=== PATIENT | female | born 1985 | race Caucasian/White ===

== ENCOUNTER 2020-03-16 13:55 | Inpatient (IN) | payer MEDICAID ==
[~2020-03-16] VITALS: Ht 162.6 cm; Wt 108.4 kg
[2020-03-16 20:16] VITALS: BP 94/67
[2020-03-16 20:32] VITALS: BP 94/67
[2020-03-16 20:47] VITALS: BP 103/68
[2020-03-16] MEDS: LORazepam 2 MG TABLET PO PRN (20:50)
[2020-03-16] MEDS: ZOLPIDEM TARTRATE 10 MG TABLET PO PRN (23:28)
[2020-03-17 01:23] VITALS: BP 123/83
[2020-03-17 01:30] VITALS: BP 80/48
[2020-03-17 02:13] VITALS: BP 89/51
[2020-03-17] MEDS ORDERED: BENZOCAINE/MENTHOL LOZENGE MM PRN (07:30)
[2020-03-17] MEDS ORDERED: ALBUTEROL SULFATE HFA 90 MCG/PUFF 8 GM INHALER IH PRN (07:30)
[2020-03-17] MEDS ORDERED: OMEPRAZOLE 20 MG CAPSULE PO PRN (07:30)
[2020-03-17] MEDS ORDERED: ONDANSETRON HCL 4 MG TABLET PO PRN (07:30)
[2020-03-17] MEDS ORDERED: MAGNESIUM HYDROXIDE SUSPENSION 30 ML UDCUP PO PRN (07:30)
[2020-03-17] MEDS ORDERED: PETROLATUM,WHITE 28 GM JELLY TP PRN (07:30)
[2020-03-17] MEDS ORDERED: IBUPROFEN 600 MG TABLET PO PRN (07:30)
[2020-03-17] MEDS ORDERED: BACITRACIN 28.4 GM OINTMENT TP PRN (07:30)
[2020-03-17] MEDS ORDERED: ACETAMINOPHEN 325 MG TABLET PO PRN (07:30)
[2020-03-17] MEDS ORDERED: DOCUSATE SODIUM 100 MG CAPSULE PO PRN (07:30)
[2020-03-17] MEDS ORDERED: CloNIDine HCL 0.1 MG TABLET PO PRN (07:30)
[2020-03-17] MEDS ORDERED: LOPERAMIDE HCL 2 MG CAPSULE PO PRN (07:30)
[2020-03-17] MEDS ORDERED: MAG HYDROX/AL HYDROX/SIMETH ES 30 ML SUSPENSION UDCUP PO PRN (07:30)
[2020-03-17 08:24] VITALS: BP 104/73
[2020-03-17] MEDS: LORazepam 2 MG TABLET PO PRN ×2 (11:04→16:40)
[2020-03-17] MEDS: BuPROPion HCL XL 150 MG ER TABLET PO SCH (14:00)
[2020-03-17 16:04] VITALS: BP 102/70
[2020-03-17 16:39] VITALS: BP 111/71
[2020-03-17] MEDS: LURASIDONE HCL 20 MG TABLET PO SCH (16:40)
[2020-03-18 00:46] VITALS: BP 110/74
[2020-03-18] MEDS: ZOLPIDEM TARTRATE 10 MG TABLET PO PRN ×2 (01:52→23:46)
[2020-03-18] MEDS: PANTOPRAZOLE SODIUM 40 MG DR TABLET PO SCH (08:20)
[2020-03-18] MEDS: BuPROPion HCL XL 150 MG ER TABLET PO SCH (08:20)
[2020-03-18 08:40] VITALS: BP 110/66
[2020-03-18] MEDS: LORazepam 2 MG TABLET PO PRN ×2 (09:20→16:58)
[2020-03-18] MEDS: LURASIDONE HCL 20 MG TABLET PO SCH (16:29)
[2020-03-18 16:50] VITALS: BP 126/87
[2020-03-19 05:33] VITALS: BP 120/78
[2020-03-19] MEDS: BuPROPion HCL XL 150 MG ER TABLET PO SCH (09:02)
[2020-03-19] MEDS: PANTOPRAZOLE SODIUM 40 MG DR TABLET PO SCH (09:02)
[2020-03-19] MEDS: LORazepam 2 MG TABLET PO PRN ×2 (09:17→16:03)
[2020-03-19 10:03] VITALS: BP 113/73
[2020-03-19] MEDS: NICOTINE 21 MG/24 HOUR PATCH TD SCH (10:08)
[2020-03-19 16:39] VITALS: BP 129/72
[2020-03-19] MEDS: LURASIDONE HCL 20 MG TABLET PO SCH (16:39)
[2020-03-19] MEDS: ZOLPIDEM TARTRATE 10 MG TABLET PO PRN (20:45)
[2020-03-20 01:11] VITALS: BP 107/70
[2020-03-20] MEDS: BuPROPion HCL XL 150 MG ER TABLET PO SCH (08:37)
[2020-03-20] MEDS: PANTOPRAZOLE SODIUM 40 MG DR TABLET PO SCH (08:37)
[2020-03-20] MEDS: NICOTINE 21 MG/24 HOUR PATCH TD SCH (08:37)
[2020-03-20] MEDS: LORazepam 2 MG TABLET PO PRN ×2 (08:52→16:06)
[2020-03-20 09:16] VITALS: BP 119/74
[2020-03-20] MEDS: LURASIDONE HCL 20 MG TABLET PO SCH (16:06)
[2020-03-20 16:13] VITALS: BP 102/65
[2020-03-20] MEDS: HALOPERIDOL 5 MG TABLET PO PRN (18:05)
[2020-03-20] MEDS: ZOLPIDEM TARTRATE 10 MG TABLET PO PRN (21:41)
[2020-03-21 06:21] VITALS: BP 106/60
[2020-03-21 08:29] VITALS: BP 100/62
[2020-03-21] MEDS: PANTOPRAZOLE SODIUM 40 MG DR TABLET PO SCH (09:09)
[2020-03-21] MEDS: BuPROPion HCL XL 150 MG ER TABLET PO SCH (09:09)
[2020-03-21] MEDS: NICOTINE 21 MG/24 HOUR PATCH TD SCH (09:12)
[2020-03-21] MEDS: LORazepam 2 MG TABLET PO PRN (12:02)
[2020-03-21 16:07] VITALS: BP 117/84
[2020-03-21] MEDS: LURASIDONE HCL 20 MG TABLET PO SCH (17:05)
[2020-03-21] MEDS: ZOLPIDEM TARTRATE 10 MG TABLET PO PRN (21:02)
[2020-03-22 05:01] VITALS: BP 110/78
[2020-03-22 08:07] VITALS: BP 111/65
[2020-03-22] MEDS: BuPROPion HCL XL 150 MG ER TABLET PO SCH (08:08)
[2020-03-22] MEDS: PANTOPRAZOLE SODIUM 40 MG DR TABLET PO SCH (08:08)
[2020-03-22] MEDS: NICOTINE 21 MG/24 HOUR PATCH TD SCH (08:09)
[2020-03-22] MEDS: LORazepam 2 MG TABLET PO PRN ×2 (08:11→14:46)
[2020-03-22] MEDS: HALOPERIDOL 5 MG TABLET PO PRN (16:19)
[2020-03-22] MEDS: LURASIDONE HCL 20 MG TABLET PO SCH (16:19)
[2020-03-22 16:20] VITALS: BP 100/65
[2020-03-22] MEDS: ZOLPIDEM TARTRATE 10 MG TABLET PO PRN (20:59)
[2020-03-23 06:06] VITALS: BP 107/65
[2020-03-23] MEDS: LORazepam 2 MG TABLET PO PRN (06:57)
[2020-03-23] MEDS: NICOTINE 21 MG/24 HOUR PATCH TD SCH (08:28)
[2020-03-23] MEDS: PANTOPRAZOLE SODIUM 40 MG DR TABLET PO SCH (08:28)
[2020-03-23] MEDS: BuPROPion HCL XL 150 MG ER TABLET PO SCH (08:28)
[2020-03-23 09:02] VITALS: BP 94/61
[2020-03-23] MEDS: LURASIDONE HCL 20 MG TABLET PO SCH (16:35)
[2020-03-23 17:37] VITALS: BP 108/79
[2020-03-23] MEDS: ZOLPIDEM TARTRATE 10 MG TABLET PO PRN (21:23)
[2020-03-24 06:20] VITALS: BP 104/62
[2020-03-24 08:06] VITALS: BP 100/61
[2020-03-24] MEDS: PANTOPRAZOLE SODIUM 40 MG DR TABLET PO SCH (08:49)
[2020-03-24] MEDS: NICOTINE 21 MG/24 HOUR PATCH TD SCH (08:50)
[2020-03-24] MEDS: BuPROPion HCL XL 150 MG ER TABLET PO SCH (08:50)
[2020-03-24] MEDS: LORazepam 2 MG TABLET PO PRN ×2 (09:41→17:03)
[2020-03-24] MEDS: LURASIDONE HCL 20 MG TABLET PO SCH (16:21)
[2020-03-24 17:23] VITALS: BP 120/79
[2020-03-24] MEDS: ZOLPIDEM TARTRATE 10 MG TABLET PO PRN (21:01)
[2020-03-25 07:04] VITALS: BP 96/60
[2020-03-25 08:03] VITALS: BP 101/60
[2020-03-25] MEDS: BuPROPion HCL XL 150 MG ER TABLET PO SCH (09:00)
[2020-03-25] MEDS: PANTOPRAZOLE SODIUM 40 MG DR TABLET PO SCH (09:00)
[2020-03-25] MEDS: NICOTINE 21 MG/24 HOUR PATCH TD SCH (09:00)
[2020-03-25 16:00] VITALS: BP 117/77
[2020-03-25] MEDS: LURASIDONE HCL 20 MG TABLET PO SCH (16:17)
[2020-03-26 00:02] VITALS: BP 120/71
[2020-03-26] MEDS: PANTOPRAZOLE SODIUM 40 MG DR TABLET PO SCH (08:26)
[2020-03-26] MEDS: BuPROPion HCL XL 150 MG ER TABLET PO SCH (08:26)
[2020-03-26] MEDS: NICOTINE 21 MG/24 HOUR PATCH TD SCH (08:27)
[2020-03-26 14:32] VITALS: BP 97/59
[2020-03-26 16:14] VITALS: BP 104/85
[2020-03-26] MEDS: LURASIDONE HCL 20 MG TABLET PO SCH (16:55)
[2020-03-26] MEDS: ZOLPIDEM TARTRATE 10 MG TABLET PO PRN (21:19)
[2020-03-27 06:04] VITALS: BP 101/62
[2020-03-27 08:03] VITALS: BP 103/62
[2020-03-27] MEDS: NICOTINE 21 MG/24 HOUR PATCH TD SCH (08:09)
[2020-03-27] MEDS: BuPROPion HCL XL 150 MG ER TABLET PO SCH (08:09)
[2020-03-27] MEDS: PANTOPRAZOLE SODIUM 40 MG DR TABLET PO SCH (08:09)
[2020-03-27] MEDS: LURASIDONE HCL 20 MG TABLET PO SCH (16:21)
[2020-03-27 16:33] VITALS: BP 106/68
[2020-03-28] MEDS: LORazepam 2 MG TABLET PO PRN (03:29)
[2020-03-28 03:51] VITALS: BP 109/75
[2020-03-28 08:07] VITALS: BP 102/65
[2020-03-28] MEDS: BuPROPion HCL XL 150 MG ER TABLET PO SCH (08:38)
[2020-03-28] MEDS: NICOTINE 21 MG/24 HOUR PATCH TD SCH (08:38)
[2020-03-28] MEDS: PANTOPRAZOLE SODIUM 40 MG DR TABLET PO SCH (08:38)
[2020-03-28 16:17] VITALS: BP 105/66
[2020-03-28] MEDS: LURASIDONE HCL 20 MG TABLET PO SCH (16:34)
[2020-03-28] MEDS: ZOLPIDEM TARTRATE 10 MG TABLET PO PRN (20:49)
[2020-03-29 00:19] VITALS: BP 102/64
[2020-03-29 09:00] VITALS: BP 106/62
[2020-03-29] MEDS: PANTOPRAZOLE SODIUM 40 MG DR TABLET PO SCH (09:00)
[2020-03-29] MEDS: BuPROPion HCL XL 150 MG ER TABLET PO SCH (09:00)
[2020-03-29] MEDS: NICOTINE 21 MG/24 HOUR PATCH TD SCH (09:00)
[2020-03-29] MEDS: LURASIDONE HCL 20 MG TABLET PO SCH (16:29)
[2020-03-29 16:36] VITALS: BP 111/62
[2020-03-29] MEDS: ZOLPIDEM TARTRATE 10 MG TABLET PO PRN (20:40)
[2020-03-30 06:50] VITALS: BP 101/63
[2020-03-30] MEDS: BuPROPion HCL XL 150 MG ER TABLET PO SCH (08:18)
[2020-03-30] MEDS: PANTOPRAZOLE SODIUM 40 MG DR TABLET PO SCH (08:18)
[2020-03-30] MEDS: NICOTINE 21 MG/24 HOUR PATCH TD SCH (08:19)
[2020-03-30 09:02] VITALS: BP 103/73
[2020-03-30 14:38] VITALS: BP 106/76
[2020-03-30 16:10] VITALS: BP 104/68
[2020-03-30] MEDS: LURASIDONE HCL 20 MG TABLET PO SCH (16:27)
[2020-03-30] MEDS: ZOLPIDEM TARTRATE 10 MG TABLET PO PRN (20:38)
[2020-03-31 08:02] VITALS: BP 112/83
[2020-03-31] MEDS: PANTOPRAZOLE SODIUM 40 MG DR TABLET PO SCH (08:33)
[2020-03-31] MEDS: BuPROPion HCL XL 150 MG ER TABLET PO SCH (08:33)
[2020-03-31] MEDS: NICOTINE 21 MG/24 HOUR PATCH TD SCH (08:34)
[2020-03-31] MEDS: LURASIDONE HCL 20 MG TABLET PO SCH (16:22)
[2020-03-31 18:30] VITALS: BP 117/79
[2020-03-31] MEDS: LORazepam 2 MG TABLET PO PRN (18:45)
[2020-03-31] MEDS: ZOLPIDEM TARTRATE 10 MG TABLET PO PRN (22:39)
[2020-04-01 00:57] VITALS: BP 109/68
[2020-04-01 08:08] LABS: BASOPHILS % (AUTO) 0.5 % (0.0-2.0); EOSINOPHILS % (AUTO) 2.3 % (1.0-6.0); HEMATOCRIT 39.3 % (36-46); LYMPHOCYTES # (AUTO) 2.9 K/uL (1.0-4.8); MEAN CORPUSCULAR HEMOGLOBIN 27.3 pg (26.0-34.0); MEAN CORPUSCULAR HGB CONC 33.1 G/dL (31.0-37.0); MEAN CORPUSCULAR VOLUME 82 fL (80-100); MONOCYTES # (AUTO) 0.4 K/uL (0.1-1.0); NEUTROPHILS # (AUTO) 3.7 K/uL (1.8-7.7); NEUTROPHILS % (AUTO) 51.2 % (40.0-70.0); PLATELET COUNT (AUTO) 227 K/uL (150-450); RED BLOOD CELL COUNT(AUTO) 4.77 MIL/uL (4.00-5.20); RED CELL DISTRIBUTION WIDTH 14.1 % (11.5-14.5)
[2020-04-01 08:26] LABS: HEMOGLOBIN A1C 5.8 % (3.8-5.6)
[2020-04-01 08:27] VITALS: BP 113/68
[2020-04-01 08:48] LABS: ALANINE AMINOTRANSFERASE 50 U/L (12-78); ALBUMIN 3.3 g/dL (3.4-5.0); ALKALINE PHOSPHATASE 93 U/L (46-116); ANION GAP 11 mmol/L (8-16); ASPARTATE AMINOTRANSFERASE 27 U/L (15-37); BILIRUBIN,TOTAL 0.5 mg/dL (0.1-1.0); CALCIUM, TOTAL 8.9 mg/dL (8.8-10.5); CARBON DIOXIDE 24 mmol/L (22-29); CHLORIDE 108 mmol/L (98-107); CHOL/HDL RATIO 5.3 (3.9-5.7); CHOLESTEROL 190 mg/dL (131-200); CREATININE 0.79 mg/dL (0.60-1.30); FREE T4 (FREE THYROXINE) 1.05 ng/dL (0.76-1.46); GLOMERULAR FILTR. RATE CALC > 60 mL/min (>60); GLUCOSE,RANDOM 81 mg/dL (70-110); HDL CHOLESTEROL 36 mg/dL (40-60); LDL CHOL (CALC.) 132 mg/dL (0-130); POTASSIUM 3.9 mmol/L (3.5-5.1); SODIUM SERUM 143 mmol/L (136-145); THYROID STIMULATING HORMONE 1.45 uIU/mL (0.36-3.74); TOTAL PROTEIN, SERUM 7.3 g/dL (6.4-8.2); TRIGLYCERIDES 112 mg/dL (15-150); UREA NITROGEN, BLOOD 10 mg/dL (7-18)
[2020-04-01] MEDS: BuPROPion HCL XL 150 MG ER TABLET PO SCH (08:51)
[2020-04-01] MEDS: PANTOPRAZOLE SODIUM 40 MG DR TABLET PO SCH (08:51)
[2020-04-01] MEDS: NICOTINE 21 MG/24 HOUR PATCH TD SCH (08:55)
[2020-04-01] MEDS ORDERED: LURA20TA PO (09:55)
[2020-04-01] MEDS ORDERED: BUPR-93 PO (09:55)
== END 2020-04-01 11:45 | disposition home or self-care (01) | DRG 753 ==
LOC: B2S 19:35
PROVIDERS: ADMIT Psychiatry & Neurology Psychiatry; ATTEND Psychiatry & Neurology Psychiatry
DX: F31.9 Bipolar disorder, unspecified (principal); I95.9 Hypotension, unspecified; E66.01 Morbid (severe) obesity due to excess calories; R45.851 Suicidal ideations; Z91.14 Patient's other noncompliance with medication regimen; Z68.41 Body mass index [BMI] 40.0-44.9, adult; F15.10 Other stimulant abuse, uncomplicated; G47.00 Insomnia, unspecified; K21.9 Gastro-esophageal reflux disease without esophagitis; R53.83 Other fatigue; F17.200 Nicotine dependence, unspecified, uncomplicated; F19.10 Other psychoactive substance abuse, uncomplicated; F41.9 Anxiety disorder, unspecified; K59.00 Constipation, unspecified; F10.10 Alcohol abuse, uncomplicated
CPT/HCPCS: 83036; 84439; 84443; 86592; 87081; G0480

== ENCOUNTER 2020-06-05 15:40 | Inpatient (IN) | payer MEDICAID, OTHER ==
[~2020-06-05] VITALS: Ht 162.6 cm; Wt 107.2 kg
[~2020-06-05 15:40] MED LIST: BUPR-93 PO; LURA20TA PO
[2020-06-05] MEDS ORDERED: LORazepam 2 MG TABLET PO ONE (16:45)
[2020-06-05 16:49] LABS: EOSINOPHILS % (AUTO) 1.9 % (1.0-6.0); HEMATOCRIT 41.4 % (36-46); HEMOGLOBIN 13.8 g/dL (12.0-16.0); LYMPHOCYTES # (AUTO) 3.4 K/uL (1.0-4.8); LYMPHOCYTES % (AUTO) 38.6 % (22.0-44.0); MEAN CORPUSCULAR HEMOGLOBIN 28.4 pg (26.0-34.0); MEAN CORPUSCULAR HGB CONC 33.4 G/dL (31.0-37.0); MEAN CORPUSCULAR VOLUME 85 fL (80-100); MONOCYTES # (AUTO) 0.6 K/uL (0.1-1.0); MONOCYTES % (AUTO) 6.4 % (2.0-9.0); NEUTROPHILS # (AUTO) 4.6 K/uL (1.8-7.7); NEUTROPHILS % (AUTO) 52.1 % (40.0-70.0); PLATELET COUNT (AUTO) 240 K/uL (150-450); RED BLOOD CELL COUNT(AUTO) 4.86 MIL/uL (4.00-5.20); RED CELL DISTRIBUTION WIDTH 15.1 % (11.5-14.5)
[2020-06-05 16:59] LABS: ANION GAP 9 mmol/L (8-16); CALCIUM, TOTAL 9.4 mg/dL (8.8-10.5); CARBON DIOXIDE 27 mmol/L (22-29); CHLORIDE 105 mmol/L (98-107); CREATININE 0.92 mg/dL (0.60-1.30); GLOMERULAR FILTR. RATE CALC > 60 mL/min (>60); GLUCOSE,RANDOM 116 mg/dL (70-110); POTASSIUM 4.4 mmol/L (3.5-5.1); SODIUM SERUM 141 mmol/L (136-145); UREA NITROGEN, BLOOD 11 mg/dL (7-18)
[2020-06-05 17:10] LABS: ALANINE AMINOTRANSFERASE 86 U/L (12-78); ALBUMIN 3.8 g/dL (3.4-5.0); ALKALINE PHOSPHATASE 111 U/L (46-116); ASPARTATE AMINOTRANSFERASE 43 U/L (15-37); BILIRUBIN,TOTAL 0.4 mg/dL (0.1-1.0); HCG,QUANTITATIVE 1 mIU/mL (0-6); LIPASE 98 U/L (73-393); TOTAL PROTEIN, SERUM 8.1 g/dL (6.4-8.2)
[2020-06-05] MEDS ORDERED: HYDROCODONE/ACETAMINOPHEN 5-325 MG TABLET PO ONE (18:45)
[2020-06-06] MEDS ORDERED: LORazepam 1 MG TABLET PO ONE (01:45)
[2020-06-06] MEDS ORDERED: HYDROCODONE/ACETAMINOPHEN 5-325 MG TABLET PO ONE (01:45)
[2020-06-06] MEDS ORDERED: 0.9% SODIUM CHLORIDE 10 ML SYRINGE IVP PRN (02:00)
[2020-06-06] MEDS ORDERED: ONDANSETRON HCL 4 MG/2 ML VIAL IVP PRN ×2 (02:00→02:15)
[2020-06-06] MEDS ORDERED: ACETAMINOPHEN 325 MG TABLET PO PRN (02:00)
[2020-06-06 02:13] VITALS: BP 100/70
[2020-06-06] MEDS ORDERED: MORPHINE SULFATE 2 MG/ML SYRINGE IVP PRN (02:15)
[2020-06-06] MEDS ORDERED: SODIUM CHLORIDE 0.45% 1,000 ML IV ONE (02:15)
[2020-06-06 02:37] LABS: THYROID STIMULATING HORMONE 1.66 uIU/mL (0.36-3.74)
[2020-06-06 05:43] VITALS: BP 100/51
[2020-06-06] MEDS: HEPARIN SODIUM,PORCINE 5,000 UNITS/ML VIAL SQ SCH ×3 (07:52→23:41)
[2020-06-06 08:00] VITALS: BP 98/56
[2020-06-06] MEDS: HYDROCODONE/ACETAMINOPHEN 5-325 MG TABLET PO PRN ×3 (09:19→20:17)
[2020-06-06 11:43] VITALS: BP 96/61
[2020-06-06] MEDS: ESCITALOPRAM OXALATE 20 MG TABLET PO SCH (14:49)
[2020-06-06] MEDS: LURASIDONE HCL 20 MG TABLET PO SCH (17:54)
[2020-06-06] MEDS: PANTOPRAZOLE SODIUM 40 MG DR TABLET PO SCH (17:54)
[2020-06-06 20:15] VITALS: BP 107/67
[2020-06-06] MEDS: LORazepam 2 MG TABLET PO PRN (20:17)
[2020-06-06 22:23] LABS: AMPHET/METH SCREEN,URINE NEGATIVE (NEGATIVE); BARBITURATE SCREEN, URINE NEGATIVE (NEGATIVE); BENZODIAZEPINES SCREEN,URINE NEGATIVE (NEGATIVE); CANNABINOID SCREEN,URINE NEGATIVE (NEGATIVE); COCAINE SCREEN,URINE NEGATIVE (NEGATIVE); METHADONE SCREEN, URINE NEGATIVE (NEGATIVE); OPIATE SCREEN,URINE POSITIVE (NEGATIVE)
[2020-06-06 22:24] LABS: PHENCYCLIDINE SCREEN,URINE NEGATIVE (NEGATIVE)
[2020-06-07 00:26] VITALS: BP 92/62
[2020-06-07] MEDS: HYDROCODONE/ACETAMINOPHEN 5-325 MG TABLET PO PRN ×4 (02:09→20:45)
[2020-06-07 04:15] VITALS: BP 106/64
[2020-06-07] MEDS: LORazepam 2 MG TABLET PO PRN ×2 (06:41→16:11)
[2020-06-07] MEDS: PANTOPRAZOLE SODIUM 40 MG DR TABLET PO SCH (08:18)
[2020-06-07] MEDS: HEPARIN SODIUM,PORCINE 5,000 UNITS/ML VIAL SQ SCH ×2 (08:18→16:11)
[2020-06-07] MEDS: ESCITALOPRAM OXALATE 20 MG TABLET PO SCH (08:18)
[2020-06-07 08:25] VITALS: BP 98/63
[2020-06-07 12:11] VITALS: BP 126/69
[2020-06-07 13:09] LABS: BASOPHILS % (AUTO) 1.1 % (0.0-2.0); EOSINOPHILS % (AUTO) 3.5 % (1.0-6.0); HEMATOCRIT 42.1 % (36-46); HEMOGLOBIN 13.9 g/dL (12.0-16.0); LYMPHOCYTES # (AUTO) 3.4 K/uL (1.0-4.8); LYMPHOCYTES % (AUTO) 50.3 % (22.0-44.0); MEAN CORPUSCULAR HEMOGLOBIN 28.1 pg (26.0-34.0); MEAN CORPUSCULAR HGB CONC 32.9 G/dL (31.0-37.0); MEAN CORPUSCULAR VOLUME 85 fL (80-100); MONOCYTES # (AUTO) 0.4 K/uL (0.1-1.0); MONOCYTES % (AUTO) 6.6 % (2.0-9.0); NEUTROPHILS # (AUTO) 2.6 K/uL (1.8-7.7); NEUTROPHILS % (AUTO) 38.5 % (40.0-70.0); PLATELET COUNT (AUTO) 211 K/uL (150-450); RED BLOOD CELL COUNT(AUTO) 4.94 MIL/uL (4.00-5.20); RED CELL DISTRIBUTION WIDTH 15.2 % (11.5-14.5)
[2020-06-07 13:21] LABS: ALANINE AMINOTRANSFERASE 98 U/L (12-78); ALBUMIN 3.6 g/dL (3.4-5.0); ALKALINE PHOSPHATASE 116 U/L (46-116); ANION GAP 9 mmol/L (8-16); ASPARTATE AMINOTRANSFERASE 55 U/L (15-37); BILIRUBIN,TOTAL 0.6 mg/dL (0.1-1.0); CALCIUM, TOTAL 9.4 mg/dL (8.8-10.5); CARBON DIOXIDE 26 mmol/L (22-29); CHLORIDE 102 mmol/L (98-107); CREATININE 1.02 mg/dL (0.60-1.30); GLOMERULAR FILTR. RATE CALC > 60 mL/min (>60); GLUCOSE,RANDOM 136 mg/dL (70-110); POTASSIUM 3.9 mmol/L (3.5-5.1); SODIUM SERUM 137 mmol/L (136-145); TOTAL PROTEIN, SERUM 7.9 g/dL (6.4-8.2); UREA NITROGEN, BLOOD 12 mg/dL (7-18)
[2020-06-07 16:04] VITALS: BP 118/71
[2020-06-07] MEDS: LURASIDONE HCL 20 MG TABLET PO SCH (18:09)
[2020-06-07 20:30] VITALS: BP 98/66
[2020-06-08 00:15] VITALS: BP 99/56
[2020-06-08] MEDS: HEPARIN SODIUM,PORCINE 5,000 UNITS/ML VIAL SQ SCH ×4 (00:26→17:07)
[2020-06-08] MEDS: LORazepam 2 MG TABLET PO PRN ×2 (00:26→12:12)
[2020-06-08 07:37] VITALS: BP 95/55
[2020-06-08] MEDS: PANTOPRAZOLE SODIUM 40 MG DR TABLET PO SCH (08:07)
[2020-06-08] MEDS: ESCITALOPRAM OXALATE 20 MG TABLET PO SCH (08:07)
[2020-06-08] MEDS: HYDROCODONE/ACETAMINOPHEN 5-325 MG TABLET PO PRN ×4 (08:08→15:41)
[2020-06-08 12:07] VITALS: BP 100/64
[2020-06-08 12:11] VITALS: BP 113/74
[2020-06-08 15:42] VITALS: BP 98/68
[2020-06-08] MEDS ORDERED: ESCI5SOL2 PO (17:21)
[2020-06-08] MEDS ORDERED: ESCI20TA87 PO (17:22)
[2020-06-08] MEDS ORDERED: LURA20TA PO (17:24)
[2020-06-08] MEDS ORDERED: MULT-1239 PO (17:24)
[2020-06-08] MEDS ORDERED: PANT-31 PO (17:25)
[2020-06-08] MEDS ORDERED: HYDR-4061 PO ×2 (17:26→17:27)
[2020-06-08] MEDS ORDERED: LORA-1001 PO (17:28)
[2020-06-08] MEDS: LURASIDONE HCL 20 MG TABLET PO SCH (18:20)
[2020-06-09] MEDS ORDERED: MULTIVITAMINS, THERAPEUTIC TABLET PO SCH (09:00)
== END 2020-06-08 18:35 | DRG 753 ==
LOC: EMS 15:42 → 3EI 21:55 → UNDOADMIN 21:55 → 6N 06-06 01:49
PROVIDERS: ADMIT Internal Medicine; ATTEND Internal Medicine
DX: F31.9 Bipolar disorder, unspecified (principal); R45.851 Suicidal ideations; E66.01 Morbid (severe) obesity due to excess calories; Z68.41 Body mass index [BMI] 40.0-44.9, adult; Z71.3 Dietary counseling and surveillance; G89.18 Other acute postprocedural pain; F17.210 Nicotine dependence, cigarettes, uncomplicated; K76.0 Fatty (change of) liver, not elsewhere classified; Z91.5 Personal history of self-harm
CPT/HCPCS: 84443; G0480; J1644; J2270

== ENCOUNTER 2020-06-07 17:20 | Inpatient (IN) | payer MEDICAID ==
[~2020-06-07] VITALS: Ht 162.6 cm; Wt 102.9 kg
[2020-06-08] MEDS ORDERED: ESCI5SOL2 PO (17:21)
[2020-06-08] MEDS ORDERED: ESCI20TA87 PO (17:22)
[2020-06-08] MEDS ORDERED: LURA20TA PO (17:24)
[2020-06-08] MEDS ORDERED: MULT-1239 PO (17:24)
[2020-06-08] MEDS ORDERED: PANT-31 PO (17:25)
[2020-06-08] MEDS ORDERED: HYDR-4061 PO ×2 (17:26→17:27)
[2020-06-08] MEDS ORDERED: LORA-1001 PO (17:28)
[2020-06-08] MEDS: LURASIDONE HCL 20 MG TABLET PO SCH (17:30)
[2020-06-08 20:25] VITALS: BP 119/80
[2020-06-08] MEDS: HYDROCODONE/ACETAMINOPHEN 5-325 MG TABLET PO PRN (21:40)
[2020-06-08] MEDS: LORazepam 2 MG TABLET PO PRN (21:40)
[2020-06-08] MEDS: ZOLPIDEM TARTRATE 10 MG TABLET PO PRN (23:52)
[2020-06-09 06:40] VITALS: BP 112/68
[2020-06-09] MEDS: HYDROCODONE/ACETAMINOPHEN 5-325 MG TABLET PO PRN ×3 (06:46→19:36)
[2020-06-09] MEDS ORDERED: NICOTINE 14 MG/24 HOUR PATCH TD PRN (08:15)
[2020-06-09] MEDS ORDERED: DOCUSATE SODIUM 100 MG CAPSULE PO PRN (08:15)
[2020-06-09] MEDS ORDERED: PETROLATUM,WHITE 28 GM JELLY TP PRN (08:15)
[2020-06-09] MEDS ORDERED: IBUPROFEN 400 MG TABLET PO PRN (08:15)
[2020-06-09] MEDS ORDERED: ONDANSETRON HCL 4 MG TABLET PO PRN (08:15)
[2020-06-09] MEDS ORDERED: MAGNESIUM HYDROXIDE SUSPENSION 30 ML UDCUP PO PRN (08:15)
[2020-06-09] MEDS ORDERED: CloNIDine HCL 0.1 MG TABLET PO PRN (08:15)
[2020-06-09] MEDS ORDERED: ALBUTEROL SULFATE HFA 90 MCG/PUFF 8 GM INHALER IH PRN (08:15)
[2020-06-09] MEDS ORDERED: LOPERAMIDE HCL 2 MG CAPSULE PO PRN (08:15)
[2020-06-09] MEDS ORDERED: GuaiFENesin/D-METHORPHAN [SUGAR-FREE] 200-20MG/10 ML SYRUP UDCUP PO PRN (08:15)
[2020-06-09] MEDS ORDERED: MAG HYDROX/AL HYDROX/SIMETH ES 30 ML SUSPENSION UDCUP PO PRN (08:15)
[2020-06-09] MEDS ORDERED: ACETAMINOPHEN 325 MG TABLET PO PRN (08:15)
[2020-06-09] MEDS: MULTIVITAMINS WITH MINERALS, THERAPEUTIC TABLET PO SCH (08:43)
[2020-06-09] MEDS: PANTOPRAZOLE SODIUM 40 MG DR TABLET PO SCH (08:44)
[2020-06-09] MEDS ORDERED: ESCITALOPRAM OXALATE 20 MG TABLET PO SCH (09:00)
[2020-06-09] MEDS: LORazepam 2 MG TABLET PO PRN ×2 (11:05→17:32)
[2020-06-09 12:13] VITALS: BP 105/76
[2020-06-09 12:50] VITALS: BP 105/76
[2020-06-09 16:44] VITALS: BP 104/75
[2020-06-09] MEDS: LURASIDONE HCL 20 MG TABLET PO SCH (16:45)
[2020-06-09 17:31] VITALS: BP 148/66
[2020-06-09 19:31] VITALS: BP 150/100
[2020-06-09] MEDS: ZOLPIDEM TARTRATE 10 MG TABLET PO PRN (23:52)
[2020-06-10 06:24] VITALS: BP 94/61
[2020-06-10] MEDS: HYDROCODONE/ACETAMINOPHEN 5-325 MG TABLET PO PRN ×2 (07:15→13:25)
[2020-06-10 10:23] VITALS: BP 92/63
[2020-06-10] MEDS: ESCITALOPRAM OXALATE 10 MG TABLET PO SCH (11:00)
[2020-06-10] MEDS: MULTIVITAMINS WITH MINERALS, THERAPEUTIC TABLET PO SCH (11:00)
[2020-06-10] MEDS: PANTOPRAZOLE SODIUM 40 MG DR TABLET PO SCH (11:00)
[2020-06-10] MEDS: IBUPROFEN 400 MG TABLET PO PRN (11:01)
[2020-06-10] MEDS: LURASIDONE HCL 20 MG TABLET PO SCH (16:32)
[2020-06-10 16:49] VITALS: BP 95/54
[2020-06-10] MEDS: ZOLPIDEM TARTRATE 10 MG TABLET PO PRN (22:06)
[2020-06-11 04:50] VITALS: BP 106/70
[2020-06-11] MEDS: HYDROCODONE/ACETAMINOPHEN 5-325 MG TABLET PO PRN ×3 (05:03→17:42)
[2020-06-11 07:40] VITALS: BP 115/68
[2020-06-11] MEDS: LORazepam 2 MG TABLET PO PRN ×3 (07:44→16:23)
[2020-06-11] MEDS: IBUPROFEN 400 MG TABLET PO PRN (07:44)
[2020-06-11 08:44] VITALS: BP 97/58
[2020-06-11] MEDS: ESCITALOPRAM OXALATE 10 MG TABLET PO SCH (09:28)
[2020-06-11] MEDS: MULTIVITAMINS WITH MINERALS, THERAPEUTIC TABLET PO SCH (09:28)
[2020-06-11] MEDS: PANTOPRAZOLE SODIUM 40 MG DR TABLET PO SCH (09:29)
[2020-06-11 10:59] VITALS: BP 110/62
[2020-06-11] MEDS: HALOPERIDOL 5 MG TABLET PO PRN ×2 (11:23→16:23)
[2020-06-11] MEDS ORDERED: HYDROCODONE/ACETAMINOPHEN 5-325 MG TABLET PO PRN (12:15)
[2020-06-11 16:00] VITALS: BP 101/65
[2020-06-11] MEDS: LURASIDONE HCL 20 MG TABLET PO SCH (17:28)
[2020-06-11] MEDS: ZOLPIDEM TARTRATE 10 MG TABLET PO PRN (21:52)
[2020-06-12 00:20] VITALS: BP 101/63
[2020-06-12] MEDS: HALOPERIDOL 5 MG TABLET PO PRN ×3 (00:26→13:11)
[2020-06-12] MEDS: LORazepam 2 MG TABLET PO PRN ×3 (00:27→13:11)
[2020-06-12] MEDS: HYDROCODONE/ACETAMINOPHEN 5-325 MG TABLET PO PRN ×3 (00:27→15:59)
[2020-06-12 08:21] VITALS: BP 101/65
[2020-06-12] MEDS: ESCITALOPRAM OXALATE 10 MG TABLET PO SCH (08:25)
[2020-06-12] MEDS: MULTIVITAMINS WITH MINERALS, THERAPEUTIC TABLET PO SCH (08:25)
[2020-06-12 08:26] VITALS: BP 131/74
[2020-06-12] MEDS: PANTOPRAZOLE SODIUM 40 MG DR TABLET PO SCH (08:26)
[2020-06-12] MEDS: IBUPROFEN 400 MG TABLET PO PRN (13:11)
[2020-06-12 16:09] VITALS: BP 102/55
[2020-06-12] MEDS: LURASIDONE HCL 20 MG TABLET PO SCH (17:22)
[2020-06-12] MEDS: ZOLPIDEM TARTRATE 10 MG TABLET PO PRN (22:09)
[2020-06-13] MEDS: HYDROCODONE/ACETAMINOPHEN 5-325 MG TABLET PO PRN ×3 (05:54→18:08)
[2020-06-13 05:55] VITALS: BP 100/60
[2020-06-13] MEDS: HALOPERIDOL 5 MG TABLET PO PRN ×3 (07:07→16:03)
[2020-06-13] MEDS: LORazepam 2 MG TABLET PO PRN ×3 (07:07→16:03)
[2020-06-13] MEDS: ESCITALOPRAM OXALATE 10 MG TABLET PO SCH (08:35)
[2020-06-13] MEDS: MULTIVITAMINS WITH MINERALS, THERAPEUTIC TABLET PO SCH (08:35)
[2020-06-13] MEDS: PANTOPRAZOLE SODIUM 40 MG DR TABLET PO SCH (08:35)
[2020-06-13 09:06] VITALS: BP 101/62
[2020-06-13 11:57] VITALS: BP 129/88
[2020-06-13 16:06] VITALS: BP 109/78
[2020-06-13] MEDS: LURASIDONE HCL 20 MG TABLET PO SCH (17:36)
[2020-06-13 18:08] VITALS: BP 112/76
[2020-06-13] MEDS: ZOLPIDEM TARTRATE 10 MG TABLET PO PRN (20:35)
[2020-06-14 05:49] VITALS: BP 100/75
[2020-06-14] MEDS: HYDROCODONE/ACETAMINOPHEN 5-325 MG TABLET PO PRN ×3 (05:50→18:36)
[2020-06-14] MEDS: HALOPERIDOL 5 MG TABLET PO PRN ×3 (05:51→16:40)
[2020-06-14] MEDS: LORazepam 2 MG TABLET PO PRN ×3 (08:20→16:40)
[2020-06-14] MEDS: MULTIVITAMINS WITH MINERALS, THERAPEUTIC TABLET PO SCH (08:20)
[2020-06-14] MEDS: ESCITALOPRAM OXALATE 10 MG TABLET PO SCH (08:20)
[2020-06-14] MEDS: PANTOPRAZOLE SODIUM 40 MG DR TABLET PO SCH (08:20)
[2020-06-14 09:56] VITALS: BP_SYST 100; BP_SYST 102; BP_DIAS 56; BP_DIAS 66
[2020-06-14] MEDS: SERTRALINE HCL 50 MG TABLET PO SCH (12:30)
[2020-06-14 16:37] VITALS: BP 134/82
[2020-06-14] MEDS: LURASIDONE HCL 20 MG TABLET PO SCH (16:40)
[2020-06-14] MEDS: ZOLPIDEM TARTRATE 10 MG TABLET PO PRN (22:21)
[2020-06-15 04:15] VITALS: BP_SYST 100; BP_SYST 108; BP_DIAS 62
[2020-06-15] MEDS: HALOPERIDOL 5 MG TABLET PO PRN ×4 (04:16→18:38)
[2020-06-15] MEDS: LORazepam 2 MG TABLET PO PRN ×4 (04:16→18:38)
[2020-06-15 08:25] VITALS: BP 110/68
[2020-06-15] MEDS: MULTIVITAMINS WITH MINERALS, THERAPEUTIC TABLET PO SCH (08:25)
[2020-06-15] MEDS: SERTRALINE HCL 50 MG TABLET PO SCH (08:25)
[2020-06-15] MEDS: HYDROCODONE/ACETAMINOPHEN 5-325 MG TABLET PO PRN ×3 (08:25→18:33)
[2020-06-15] MEDS: ESCITALOPRAM OXALATE 10 MG TABLET PO SCH (08:25)
[2020-06-15] MEDS: PANTOPRAZOLE SODIUM 40 MG DR TABLET PO SCH (08:26)
[2020-06-15 12:01] VITALS: BP 107/70
[2020-06-15] MEDS: LURASIDONE HCL 20 MG TABLET PO SCH (17:25)
[2020-06-15 18:33] VITALS: BP 127/72
[2020-06-16] MEDS: ESCITALOPRAM OXALATE 10 MG TABLET PO SCH (07:57)
[2020-06-16] MEDS: SERTRALINE HCL 50 MG TABLET PO SCH (07:58)
[2020-06-16] MEDS: MULTIVITAMINS WITH MINERALS, THERAPEUTIC TABLET PO SCH (07:58)
[2020-06-16] MEDS: PANTOPRAZOLE SODIUM 40 MG DR TABLET PO SCH (07:58)
[2020-06-16] MEDS: LORazepam 2 MG TABLET PO PRN ×3 (07:59→23:47)
[2020-06-16] MEDS: HYDROCODONE/ACETAMINOPHEN 5-325 MG TABLET PO PRN ×3 (08:01→21:23)
[2020-06-16] MEDS: HALOPERIDOL 5 MG TABLET PO PRN ×3 (08:02→23:47)
[2020-06-16 11:05] VITALS: BP 107/62
[2020-06-16 16:02] VITALS: BP 130/69
[2020-06-16] MEDS: LURASIDONE HCL 20 MG TABLET PO SCH (17:06)
[2020-06-16] MEDS: ZOLPIDEM TARTRATE 10 MG TABLET PO PRN (22:24)
[2020-06-17 00:08] VITALS: BP 124/78
[2020-06-17 08:07] VITALS: BP 113/61
[2020-06-17] MEDS: LORazepam 2 MG TABLET PO PRN ×2 (08:07→14:11)
[2020-06-17] MEDS: PANTOPRAZOLE SODIUM 40 MG DR TABLET PO SCH (08:07)
[2020-06-17] MEDS: HALOPERIDOL 5 MG TABLET PO PRN ×2 (08:07→14:11)
[2020-06-17] MEDS: ESCITALOPRAM OXALATE 10 MG TABLET PO SCH (08:07)
[2020-06-17] MEDS: HYDROCODONE/ACETAMINOPHEN 5-325 MG TABLET PO PRN ×2 (08:07→14:11)
[2020-06-17] MEDS: MULTIVITAMINS WITH MINERALS, THERAPEUTIC TABLET PO SCH (08:07)
[2020-06-17] MEDS: SERTRALINE HCL 50 MG TABLET PO SCH (08:07)
[2020-06-17 16:10] VITALS: BP 109/69
[2020-06-17] MEDS: LURASIDONE HCL 20 MG TABLET PO SCH (17:09)
[2020-06-17] MEDS: ZOLPIDEM TARTRATE 10 MG TABLET PO PRN (20:34)
[2020-06-18 07:44] VITALS: BP_SYST 103
[2020-06-18] MEDS: HYDROCODONE/ACETAMINOPHEN 5-325 MG TABLET PO PRN ×2 (07:46→16:43)
[2020-06-18] MEDS: ESCITALOPRAM OXALATE 10 MG TABLET PO SCH (08:32)
[2020-06-18] MEDS: MULTIVITAMINS WITH MINERALS, THERAPEUTIC TABLET PO SCH (08:32)
[2020-06-18] MEDS: PANTOPRAZOLE SODIUM 40 MG DR TABLET PO SCH (08:32)
[2020-06-18] MEDS: SERTRALINE HCL 50 MG TABLET PO SCH (08:32)
[2020-06-18] MEDS: LORazepam 2 MG TABLET PO PRN ×2 (09:52→14:17)
[2020-06-18] MEDS: HALOPERIDOL 5 MG TABLET PO PRN ×2 (09:52→14:17)
[2020-06-18 09:56] VITALS: BP 107/70
[2020-06-18 16:05] VITALS: BP 109/70
[2020-06-18] MEDS: LURASIDONE HCL 20 MG TABLET PO SCH (16:40)
[2020-06-19] MEDS: MULTIVITAMINS WITH MINERALS, THERAPEUTIC TABLET PO SCH (08:22)
[2020-06-19] MEDS: HALOPERIDOL 5 MG TABLET PO PRN ×2 (08:22→15:09)
[2020-06-19] MEDS: ESCITALOPRAM OXALATE 10 MG TABLET PO SCH (08:22)
[2020-06-19] MEDS: LORazepam 2 MG TABLET PO PRN ×2 (08:22→15:08)
[2020-06-19] MEDS: SERTRALINE HCL 50 MG TABLET PO SCH (08:22)
[2020-06-19] MEDS: PANTOPRAZOLE SODIUM 40 MG DR TABLET PO SCH (08:22)
[2020-06-19] MEDS: HYDROCODONE/ACETAMINOPHEN 5-325 MG TABLET PO PRN ×2 (08:23→15:09)
[2020-06-19 08:46] VITALS: BP 104/69
[2020-06-19] MEDS: LURASIDONE HCL 20 MG TABLET PO SCH (17:10)
[2020-06-19 17:39] VITALS: BP 101/54
[2020-06-19] MEDS: ZOLPIDEM TARTRATE 10 MG TABLET PO PRN (21:41)
[2020-06-20 06:28] VITALS: BP 121/72
[2020-06-20] MEDS: HALOPERIDOL 5 MG TABLET PO PRN ×2 (06:28→13:36)
[2020-06-20] MEDS: HYDROCODONE/ACETAMINOPHEN 5-325 MG TABLET PO PRN ×2 (06:28→13:36)
[2020-06-20] MEDS: SERTRALINE HCL 50 MG TABLET PO SCH (07:49)
[2020-06-20] MEDS: LORazepam 2 MG TABLET PO PRN ×2 (07:49→13:36)
[2020-06-20] MEDS: ESCITALOPRAM OXALATE 10 MG TABLET PO SCH (07:49)
[2020-06-20] MEDS: MULTIVITAMINS WITH MINERALS, THERAPEUTIC TABLET PO SCH (07:49)
[2020-06-20] MEDS: PANTOPRAZOLE SODIUM 40 MG DR TABLET PO SCH (07:49)
[2020-06-20 12:42] VITALS: BP 113/64
[2020-06-20 16:17] VITALS: BP 104/63
[2020-06-20] MEDS: LURASIDONE HCL 20 MG TABLET PO SCH (16:30)
[2020-06-20] MEDS: ZOLPIDEM TARTRATE 10 MG TABLET PO PRN (20:20)
[2020-06-21] MEDS: LORazepam 2 MG TABLET PO PRN ×2 (08:23→14:30)
[2020-06-21] MEDS: MULTIVITAMINS WITH MINERALS, THERAPEUTIC TABLET PO SCH (08:23)
[2020-06-21] MEDS: PANTOPRAZOLE SODIUM 40 MG DR TABLET PO SCH (08:23)
[2020-06-21] MEDS: HALOPERIDOL 5 MG TABLET PO PRN ×2 (08:23→14:30)
[2020-06-21] MEDS: ESCITALOPRAM OXALATE 10 MG TABLET PO SCH (08:23)
[2020-06-21] MEDS: SERTRALINE HCL 50 MG TABLET PO SCH (08:23)
[2020-06-21 09:00] VITALS: BP 141/83
[2020-06-21] MEDS: HYDROCODONE/ACETAMINOPHEN 5-325 MG TABLET PO PRN (14:31)
[2020-06-21] MEDS ORDERED: SERT50TA12 PO (15:05)
[2020-06-21] MEDS ORDERED: MULT-248 PO (15:08)
[2020-06-21] MEDS ORDERED: PANT-31 PO (15:09)
== END 2020-06-21 17:15 | disposition home or self-care (01) | DRG 753 ==
LOC: 3EI 06-08 18:45
PROVIDERS: ADMIT Psychiatry & Neurology Psychiatry; ATTEND Psychiatry & Neurology Psychiatry
DX: F31.30 Bipolar disorder, current episode depressed, mild or moderate severity, unspecified (principal); E66.9 Obesity, unspecified; R45.851 Suicidal ideations; R73.9 Hyperglycemia, unspecified; Z68.38 Body mass index [BMI] 38.0-38.9, adult; Z03.818 Encounter for observation for suspected exposure to other biological agents ruled out
CPT/HCPCS: 87081; 97110; 97112; 97140; 97167; 97530; 97535; Q0162